=== PATIENT | female | born 2000 | race Caucasian/White ===

== ENCOUNTER 2024-11-15 17:24 | Emergency (ER) | payer BC, SELFPAY ==
[2024-11-15 17:28] VITALS: BP 92/48; PULSE 135; RESP 24; O2SAT 95
[2024-11-15 17:30] VITALS: BP 80/52; PULSE 103; RESP 22; TEMP 37.7; O2SAT 100
--- NOTE | 2024-11-15 18:37 | ED.NAVMDI ---
HPI - Nausea/Vomiting/Diarrhea General Chief complaint: Nausea/Vomiting/Diarrhea Stated complaint: Vomiting Time Seen by Provider: 11/15/24 17:25 Source: patient and family Mode of arrival: ambulatory Limitations: no limitations History of Present Illness HPI Narrative: 23 yo F presents with sister with c/o N/V/D since 2am. Sister states pt has been pale, unsteady on her feet and seems confused for the past 2 to 3 hours. [place] home cooked meal last night and sister thinks has pork allergy . has had N/v from it in the past. Afebrile. Has not been able to keep down fluids all day. Concerned for dehydration. Denies recent alcohol use. Pt c/o ABD pain. Pt pale, movign back in forth in chair, appears to be in pain, eyes rolling back in her head, not answering any questions. All systems reviewed and negative except as noted above. Related Data Home Medications ?Medication ?Instructions ?Recorded ?Confirmed ?Last Taken ?Type No Home Medications 11/15/24 11/15/24 Unknown History Allergies Allergy/AdvReac Type Severity Reaction Status Date / Time penicillin G Allergy Severe Anaphylaxis Verified 11/15/24 18:27 Review of Systems Review of Systems: CONSTITUTIONAL: Denies fever, chills, or sweats. family reports fatigue, pale EYES: Denies visual changes, redness, or discharge. ENT: Denies rhinorrhea, congestion, sore throat, or otalgia. CARDIOVASCULAR: Denies chest pain, palpitations, or edema. RESPIRATORY: Denies cough or dyspnea. GASTROINTESTINAL: reports abdominal pain, nausea, vomiting, or diarrhea. GENITOURINARY: Denies dysuria or hematuria. SKIN: Denies rash or itching. MUSCULOSKELETAL: Denies back pain, joint pain, or myalgia. NEUROLOGIC: Denies headache, numbness, or weakness. PSYCHIATRIC: Denies anxiety or depression. All other systems reviewed are negative, except as documented in HPI. [facility] Comments At time of signature, agree with nursing past medical, surgical, social and family history. There is no relevant family history pertinent to the presenting complaint. Exam Narrative: GENERAL: pale, appears to be in pain distress, lethargic, incoherent HEAD: normocephalic, atraumatic. EYES: PERRL. Sclera clear/white. Vision is grossly intact. EARS: External ears normal NOSE: External nose normal NECK: Neck supple, non-tender without lymphadenopathy, masses or thyromegaly. CARDIOVASCULAR: tachycardic without murmurs, gallops, or rubs. RESPIRATORY: Clear to auscultation. Breath sounds equal bilaterally. No wheezes, rales, or rhonchi. SKIN: warm, Dry, intact with no suspicious lesions or rash, good texture and turgor. NEURO: awake but confused. A&O x 1 to 2 EXTREMITIES: No joint tenderness, effusion, or edema noted. Course Course Level of Care: Express Care Visit Vital Signs Vital signs: Vital Signs Pulse Rate 135 H 11/15/24 17:28 Respiratory Rate 24 H 11/15/24 17:28 Blood Pressure 92/48 L 11/15/24 17:28 Pulse Oximetry 95 11/15/24 17:28 Oxygen Delivery Room Air 11/15/24 17:28 Temperature 37.7 C H 11/15/24 17:30 Pulse Rate 103 H 11/15/24 17:30 Respiratory Rate 22 H 11/15/24 17:30 Blood Pressure 80/52 L 11/15/24 17:30 Pulse Oximetry 100 11/15/24 17:30 Oxygen Delivery Room Air 11/15/24 17:30 Transfer Transfered to: [place] Transportation: BLS Transfer rationale: ABD pain, dehydration, hypotension, confusion Accepting physician: Leonor PATEL MDM - Nausea/Vomiting/Diarrhea MDM Narrative Medical decision making narrative: Patient is aware of diagnosis, understands and agrees to treatment plan. Anticipatory guidance given. Patient agrees to follow-up as directed and is aware of reasons to seek care at the emergency department. Portions of this record may have been created with voice recognition software transferring to ER for further evaluation of ABD pain, hypotension, incoherent Discharge Plan Discharge Clinical Impression: Nausea vomiting and diarrhea, Acute dehydration Patient Disposition: Acute Care Hospital Condition: Stable Patient Language: Anguillan Prescriptions: No Action No Home Medications Follow-up/Referrals: PHYSICIAN,CORRECTIONAL SECURITY OFFICER [Primary Care Provider] - Time of Disposition: 17:53
== END 2024-11-15 17:50 | disposition short-term general hospital (02) ==
PROVIDERS: Emergency Provider Nurse Practitioner Family
DX: R11.2 Nausea with vomiting, unspecified (principal); R19.7 Diarrhea, unspecified; E86.0 Dehydration
CPT/HCPCS: 99213; G0463

== ENCOUNTER 2024-11-15 18:08 | Emergency (ER) | payer BC, SELFPAY ==
[2024-11-15 18:06] VITALS: BP 125/99; PULSE 91; RESP 16; TEMP 36.4; O2SAT 100
--- NOTE | 2024-11-15 18:20 | ED_ITS ---
HPI - Abdominal Pain General Chief Complaint: Nausea/Vomiting/Diarrhea Stated Complaint: n/v/d abd pain Time Seen by Provider: 11/15/24 18:13 History of Present Illness HPI narrative: 23-year-old female with no significant past medical history presenting to the emergency department via EMS for concerns of nausea and, dehydration, diarrhea. Symptoms onset about 2 in the morning. Patient states that she had a medial in containing pork over at her family's house. Patient normally does not eat pork and thinks this could be a reaction to it. No one else at the family household has been sick with similar symptoms. Denies any known allergies to pork or any pork products. Endorses feeling dehydrated having voluminous watery stools for since 2 in the morning. Some vague abdominal cramping as well. No chest pain, shortness a breath, fever, chills, back pain. No urinary complaints. Was otherwise in her normal state of health yesterday. Related Data Allergies Allergy/AdvReac Type Severity Reaction Status Date / Time penicillin G Allergy Severe Anaphylaxis Verified 11/15/24 18:27 Review of Systems 2 Review of Systems: As reviewed above in HPI Exam 2 Narrative: GENERAL: [Well-appearing, well-nourished, and in no acute distress.] HEAD: [Normocephalic, atraumatic.] EYES: [PERRLA and EOMI.] ENT: Nares clear, no rhinorrhea or epistaxis. Mucous membranes dry NECK: Supple. CHEST: [Clear to auscultation. No respiratory distress.] HEART: [Regular rate and rhythm]. No murmur heard. [Normal peripheral pulses.] ABDOMEN: [Soft, nondistended], [nontender], [No rigidity or guarding] EXTREMITIES: Normal range of motion. [No edema.] SKIN: Warm, dry, no rash. NEURO: [No focal deficits]. Alert and oriented [x3.] PSYCH: [Normal mood and affect.] Course Vital Signs Vital signs: Vital Signs Temperature 36.4 C 11/15/24 18:06 Pulse Rate 91 11/15/24 18:06 Respiratory Rate 16 11/15/24 18:06 Blood Pressure 125/99 H 11/15/24 18:06 Pulse Oximetry 100 11/15/24 18:06 Oxygen Delivery Room Air 11/15/24 18:06 Temperature 36.4 C 12/21/24 18:06 Pulse Rate 86 11/15/24 19:31 Respiratory Rate 18 11/15/24 19:31 Blood Pressure 117/58 L 11/15/24 19:31 Pulse Oximetry 100 11/15/24 19:31 Oxygen Delivery Room Air 11/15/24 18:06 MDM - Abdominal Pain MDM Narrative Medical decision making narrative: 23-year-old otherwise healthy female presenting with nausea, abdominal cramping and diarrhea for approximately 16 hours. She states her diarrhea is loose and voluminous without any foul odor or melena/blood. No mucus. No history of IBS or inflammatory bowel disease. Some abdominal cramping which is nonspecific, she does appear slightly dehydrated but has reassuring vital signs without any significant tachycardia, fever, hypoxia, blood pressure concerns. She is otherwise awake and appears well. IV was established as well as blood work being obtained including CBC, CMP, urinalysis, EKG. She was given fluid resuscitation with L of lactated Ringer's, treatment with Toradol, Pepcid, zofran. Differential includes dehydration, gastroenteritis, food poisoning, less likely intra-abdominal process such as diverticulitis, colitis, inflammatory bowel. Laboratory studies reassuring, no leukocytosis anemia or electrolyte deficiencies. Normal renal and hepatic function panel. Negative lipase. Normal glucose. Urinalysis without any signs of infection. Negative test. Patient was re-evaluated and felt significantly improved after hydration and medications. At this time she is stable for discharge home with symptomatic controlling medications and return precautions. Patient verbalized understanding and was safely discharge this time. Medical Records Attestation: I reviewed the patient's medical records. Lab Data Attestation: I reviewed the patient's lab results. 11/15/24 18:24 11/15/24 18:24 Labs: Lab Results 11/15/24 11/15/24 11/15/24 Range/Units 18:24 18:33 18:34 WBC 8.0 (4.5-10.0) K/mm3 RBC 4.47 (4.2-5.4) M/mm3 Hgb 13.4 (12.0-15.0) g/dL Hct 39.1 (37.0-47.0) % MCV 87.5 (80-100) fl MCH 30.0 (26-34) pg MCHC 34.3 (32-36) g/dl RDW 12.7 (11.5-14.5) % Plt Count 170 (150-375) k/mm3 MPV 10.4 (7.4-10.4) fl Immature Gran % (Auto) Not Reportable Neut % (Auto) Not Reportable Lymph % (Auto) Not Reportable Villalba % (Auto) Not Reportable Eos % (Auto) Not Reportable Baso % (Auto) Not Reportable Lymph # (Auto) Not Reportable Villalba # (Auto) Not Reportable Eos # (Auto) Not Reportable Baso # (Auto) Not Reportable Abs Immat Gran (auto) Not Reportable Absolute Neuts (auto) Not Reportable Absolute Nucleated RBC Not Reportable Total Counted 100 Neutrophils % (Manual) 91 H (46-73) % Band Neutrophils % 1 (0-6) % Lymphocytes % (Manual) 5.0 L (18-44) % Monocytes % (Manual) 3 (3-9) % Nucleated RBC % Not Reportable Abs Neuts (Manual) 7.36 H (1.7-7.2) K/mm3 Abs Lymphs (Manual) 0.40 L (1.1-4.5) K/mm3 Abs Monocytes (Manual) 0.24 (0.1-0.90) K/mm3 Platelet Estimate Adequate (Adequate) Schistocytes None seen Sodium 133 L (137-145) mmol/L Potassium 3.5 (3.4-5.0) mmol/L Chloride 102 (98-107) mmol/L Carbon Dioxide 20 L (22-30) mmol/L Anion Gap 11 (4-12) mmol/L BUN 14 (7-17) mg/dL Creatinine 0.60 L (0.7-1.0) mg/dL Estim Creat Clear Calc 103 ml/min Estimated GFR > 60 (59 - ) Glucose 118 H (65-110) mg/dL POC Capillary Glucose (65-105) mg/dl Calcium 9.2 (8.4-10.2) mg/dL Total Bilirubin 1.2 (0.2-1.3) mg/dL AST 25 (14-36) U/L ALT 19 (6-35) U/L Alkaline Phosphatase 66 (38-126) U/L Total Protein 8.0 (6.3-8.2) g/dL Albumin 4.5 (3.5-5.1) g/dL Lipase 51 (23-300) U/L Urine Color Yellow (Yellow) Urine Appearance Clear (Clear) Urine pH 8.0 (5.0-9.0) Ur Specific [place] 1.024 (1.001-1.035) Urine Protein Trace (Negative) mg/dL Urine Glucose (UA) Negative (Negative) mg/dL Urine Ketones Trace H (Negative) mg/dL Ur Blood (Man) Negative (Negative) Urine Nitrate Negative (Negative) Urine Bilirubin Negative (Negative) Urine Urobilinogen 0.2 (<2.0) mg/dL Leukocyte Esterase Rfl Negative (Negative) SUKUMAR/UL Urine RBC 0-2 (0-2) /hpf Urine WBC 0-5 (0-3) /hpf Ur Squamous Epith Cells None seen (Few) /hpf Urine Bacteria None seen /hpf Urine Casts 0-2 POC Urine HCG, Qual Negative (Negative) 11/15/24 Range/Units 18:37 WBC (4.5-10.0) K/mm3 RBC (4.2-5.4) M/mm3 Hgb (12.0-15.0) g/dL Hct (37.0-47.0) % MCV (80-100) fl MCH (26-34) pg MCHC (32-36) g/dl RDW (11.5-14.5) % Plt Count (150-375) k/mm3 MPV (7.4-10.4) fl Immature Gran % (Auto) Neut % (Auto) Lymph % (Auto) Villalba % (Auto) Eos % (Auto) Baso % (Auto) Lymph # (Auto) Villalba # (Auto) Eos # (Auto) Baso # (Auto) Abs Immat Gran (auto) Absolute Neuts (auto) Absolute Nucleated RBC Total Counted Neutrophils % (Manual) (46-73) % Band Neutrophils % (0-6) % Lymphocytes % (Manual) (18-44) % Monocytes % (Manual) (3-9) % Nucleated RBC % Abs Neuts (Manual) (1.7-7.2) K/mm3 Abs Lymphs (Manual) (1.1-4.5) K/mm3 Abs Monocytes (Manual) (0.1-0.90) K/mm3 Platelet Estimate (Adequate) Schistocytes Sodium (137-145) mmol/L Potassium (3.4-5.0) mmol/L Chloride (98-107) mmol/L Carbon Dioxide (22-30) mmol/L Anion Gap (4-12) mmol/L BUN (7-17) mg/dL Creatinine (0.7-1.0) mg/dL Estim Creat Clear Calc ml/min Estimated GFR (59 - ) Glucose (65-110) mg/dL POC Capillary Glucose 98 (65-105) mg/dl Calcium (8.4-10.2) mg/dL Total Bilirubin (0.2-1.3) mg/dL AST (14-36) U/L ALT (6-35) U/L Alkaline Phosphatase (38-126) U/L Total Protein (6.3-8.2) g/dL Albumin (3.5-5.1) g/dL Lipase (23-300) U/L Urine Color (Yellow) Urine Appearance (Clear) Urine pH (5.0-9.0) Ur Specific [place] (1.001-1.035) Urine Protein (Negative) mg/dL Urine Glucose (UA) (Negative) mg/dL Urine Ketones (Negative) mg/dL Ur Blood (Man) (Negative) Urine Nitrate (Negative) Urine Bilirubin (Negative) Urine Urobilinogen (<2.0) mg/dL Leukocyte Esterase Rfl (Negative) SUKUMAR/UL Urine RBC (0-2) /hpf Urine WBC (0-3) /hpf Ur Squamous Epith Cells (Few) /hpf Urine Bacteria /hpf Urine Casts POC Urine HCG, Qual (Negative) Discharge Plan Discharge Clinical Impression: Nausea vomiting and diarrhea, Gastroenteritis, Food poisoning Patient Disposition: Home, Self-Care Condition: Stable Instructions: Antibiotic Form, Gastroenteritis (ED), Acute Diarrhea (ED), Food Poisoning (ED) Additional Instructions: Your workup today was very reassuring, we will be able to send you home with some medications for symptom control. If you have any persistent symptoms, profound dehydration inability to tolerate any oral intake please return to the emergency department otherwise follow up with regular healthcare provider. Patient Language: Trinidadian Prescriptions: New dicyclomine 20 mg tablet 20 mg PO TID PRN (Reason: abdominal pain) Qty: 14 0RF ondansetron 4 mg tablet,disintegrating 4 mg PO Q8H PRN (Reason: nausea and vomiting) Qty: 10 0RF loperamide [Anti-Diarrheal (loperamide)] 2 mg capsule 2 mg PO Q6H PRN (Reason: loose stool) Qty: 14 0RF Follow-up/Referrals: PHYSICIAN,MACHINE RIVETER [Non-Staff] - Time of Disposition: 19:43
[2024-11-15 18:22] VITALS: BP 137/65; PULSE 90; RESP 17; O2SAT 100
--- NOTE | 2024-11-15 18:25 | ECG_ITS ---
Test Date: 2024-11-15 18:11:13 Measurements Intervals [place] Rate: 89 P: 74 LA: 134 QRS: 85 QRSD: 97 T: -13 QT: 331 QTc: 403 Interpretive Statements SINUS RHYTHM POSSIBLE LEFT ATRIAL ENLARGEMENT [-0.1mV P WAVE IN V1/V2] NONSPECIFIC T-WAVE ABNORMALITY No previous ECG available for comparison Electronically Signed On 11-15-2024 21:07:29 FACILITY ENGINEER by Adina Clemons M.D.
[2024-11-15 18:30] LABS: Hematocrit 39.1 % (37.0-47.0); Hemoglobin 13.4 g/dL (12.0-15.0); Mean Corpuscular HGB Conc 34.3 g/dl (32-36); Mean Corpuscular Volume 87.5 fl (80-100); Mean Platelet Volume 10.4 fl (7.4-10.4); Platelet Count Result 170 k/mm3 (150-375); Red Blood Count 4.47 M/mm3 (4.2-5.4); Red Cell Distribution Width 12.7 % (11.5-14.5)
[2024-11-15 18:35] LABS: BEDSIDEPREGUCG Negative (Negative)
[2024-11-15] MEDS: LACTATED RINGERS 1,000 ML 999 ML IV CONT (18:35)
[2024-11-15] MEDS: ONDANSETRON INJ 4 MG/2 ML VIAL IV PUSH (18:36)
[2024-11-15] MEDS: FAMOTIDINE 20 MG/2 ML VIAL IV PUSH (18:37)
[2024-11-15] MEDS: KETOROLAC 30 MG/ML VIAL (*BKC) IV PUSH (18:37)
[2024-11-15 18:40] VITALS: BP 119/62; PULSE 88; RESP 19; O2SAT 100
[2024-11-15 18:40] LABS: Glucose Point of Care 98 mg/dl (65-105)
[2024-11-15 18:41] LABS: Alanine Aminotransferase 19 U/L (6-35); Albumin Level 4.5 g/dL (3.5-5.1); Alkaline Phosphatase 66 U/L (38-126); Anion Gap 11 mmol/L (4-12); Aspartate Amino Transferase 25 U/L (14-36); Bilirubin,Total 1.2 mg/dL (0.2-1.3); Blood Urea Nitrogen 14 mg/dL (7-17); Calcium 9.2 mg/dL (8.4-10.2); Carbon Dioxide 20 mmol/L (22-30); Chloride 102 mmol/L (98-107); Estimated CRCL calculation 103 ml/min; Estimated Glomerular Filt Rate > 60; Glucose 118 mg/dL (65-110); Lipase 51 U/L (23-300); Potassium 3.5 mmol/L (3.4-5.0); Sodium 133 mmol/L (137-145)
[2024-11-15 18:46] LABS: Add Urine Microscopic? YES; Appearance Urine Clear (Clear); Bacteria Urine None Seen /hpf; Bilirubin Urine Negative (Negative); Blood Urine Negative (Negative); Color Urine Yellow (Yellow); Glucose Urine UA Negative (Negative); Ketones Urine Trace mg/dL (Negative); Leukocyte Esterase Ur Negative LEU/UL (Negative); Nitrate Urine Negative (Negative); Non Pathogenic Casts 0-2; Protein Urine Trace mg/dL (Negative); RBC Urine 0-2 /hpf (0-2); Specific Grav Ur 1.024 (1.001-1.035); Squamous Epithelial Cell Urine None Seen /hpf (Few); Urobilinogen Urine 0.2 mg/dL (<2.0); WBC Urine 0-5 /hpf (0-3)
[2024-11-15 19:00] LABS: Band Neutrophils Percent 1 % (0-6); Monocytes Absolute Manual 0.24 K/mm3 (0.1-0.90); Monocytes Percent Manual 3 % (3-9); Neutrophils Absolute Manual 7.36 K/mm3 (1.7-7.2); Neutrophils Percent Manual 91 % (46-73); Platelet Estimate Adequate (Adequate); Schistocytes None Seen; Total Cells Counted 100
[2024-11-15 19:01] VITALS: BP 124/64; PULSE 91; RESP 16; O2SAT 100
[2024-11-15 19:31] VITALS: BP 117/58; PULSE 86; RESP 18; O2SAT 100
--- OUTSIDE RECORDS SUMMARY | 2024-11-23 00:07 | XMS_ITS | Encounter Summary ---
Author Organization [facility] Address [address] [place] [id number] Care Team Providers Care Zoology Professor Name Role Phone Meghan Cagle MD Primary Care Provider Reason for Visit * Reason Comments Follow-up * Benefit Info Only (Routine) - Closed Specialty Diagnoses / Procedures Referred By Mary uriarte Referred To Contact Pediatric Endocrinology Procedures FOLLOW UP Sherry Bautista MD [address] [place] [phone] Referral ID Status Reason Start Date Expiration Date Visits Re quested Visits Authorized [id number] Closed 06/11/2018 07/11/2018 1 1 Encounter Details Date Type Department Care Team (Latest Contact Info) Description 06/11/2018 4:45 PM EDT Office Visit [facility] at the [facility] [address] [place] [id number] Sherry Bautista MD [address] [place] [phone] Sebastian's thyroiditis (Primary Dx) Social History Tobacco Use Types Packs/Day Years Used Date Smoking Tobacco: Never Smokeless Tobacco: Never Alcohol Use Standard Drinks/Week Comments No 0 (1 standard drink = 0.6 oz pur e alcohol) Sex and Gender Information Value Date Recorded Sex Assigned at Not on file Gender Identity Not on file Sexual Orientation Not on file documented as of this encounter Last Filed Vital Signs Vital Sign Reading Time Taken Comments Blood Pressure 118/70 06/11/2018 5:07 PM EDT Pulse 61 06/11/2018 5:07 PM EDT Temperature 36.8 ??C (98.3 ??F) 06/11/2018 5:07 PM ED T Respiratory Rate - - Oxygen Saturation - - Inhaled Oxygen Concentration - - Weight 55.9 kg (123 lb 3.8 oz) 06/11/2018 5:07 P M EDT Height 158.6 cm (5' 2.44 ) 06/11/2018 5:07 PM ED T Body Mass Index 22.22 06/11/2018 5:07 PM EDT Body Mass Index Percentile 67.20% 06/11/2018 5:0 7 PM EDT Growth Chart: [facility] (Girls, 2- 20 Years) documented in this encounter Patient Instructions * Patient Instructions* Sherry Bautista MD - 06/11/2018 4:45 PM EDT 1. Please obtain blood test in July. documented in this encounter Progress Notes * Sherry Bautista MD - 06/11/2018 4:45 PM EDT HPI Neville Voss is a 17 y.o. 6 m.o. female I am seeing Neville Voss today in the endocrine clinic as a follow up for Sebastian's thyroiditis. Patient was referred by Meghan Cagle MD. I last saw her 4 months ago. Patient is here with her mother. Neville had irregular periods and was evaluated by , a technology resource teacher. She had an implant of Etonogestrel in April 2017. As part of an investigation for irregular periods, blood tests were obtained in September 2017. The results showed the presence of thyroid peroxidase antibody. However, T4 and TSH were both normal. The tests were repeated again on Dec. The results showed normal FreeT4 (1.0) and TSH (1.6). TPOwas markedly elevated (126). She was instructed to take multivitamin and iodine pill to improve thyroid function. The iodine pill contains 3000 mcg of iodine. Multivitamin also contains 75 mcg of iodine. She denies any symptoms of hypothyroidism such as low energy level or constipation. At the lastvisit, I have asked her to stop the iodine supplement and asked for urine iodine test. The patient submitted the sample to the laboratory yesterday. Past Medical History History ??? Length: 17 (43.2 cm) Weight: 9 lb 2 oz (4.139 kg) ??? Delivery Method: , Classical ??? Gestation Age: 38 wks ??? Feeding: Breast and Bottle Fed \History reviewed. No pertinent surgical history. Family History Paternal grandmother and great grandfather both have thyroid condition. Grandmother is taking daily synthroid. Social History Social History Narrative Neville is living with both parents and sibling. She finished 10th grade and did well in school last year. No Known Allergies Review of Systems Constitutional: Normal weight gain. HENT: No discharge. Eyes: No visual problems. Respiratory: No cough. Cardiovascular: No chest pain. Gastrointestinal: No diarrhea. Endocrine: Periods have become more regular. Genitourinary: Normal voiding. Musculoskeletal: No fractures. Skin: No rash. Allergic/Immunologic: No frequent infections. Neurological: No seizure. Hematological: No bleeding diathesis. Vitals: 06/11/18 1707 BP: 118/70 Pulse: 61 Temp: 98.3 ??F (36.8 ??C) Weight: 123 lb 3.8 oz (55.9 kg) Height: 5' 2.44 (1.586 m) Body mass index is 22.22 kg/(m^2). Body surface area is 1.57 meters squared.\ Wt Readings from Last 3 Encounters: 06/11/18 123 lb 3.8 oz (55.9 kg) (56 %, Z= 0.14)* 02/08/18 118 lb 2.7 oz (53.6 kg) (47 %, Z= -0.07)* * Growth percentiles are based on CDC 2-20 Years data. Ht Readings from Last 3 Encounters: 06/11/18 5' 2.44 (1.586 m) (26 %, Z= -0.65)* 02/08/18 5' 1.81 (1.57 m) (19 %, Z= -0.87)* * Growth percentiles are based on CDC 2-20 Years data. Body mass index is 22.22 kg/(m^2). 67 %ile (Z= 0.45) based on CDC 2-20 Years BMI-for-age data using vitals from 06/11/2018. 56 %ile (Z= 0.14) based on CDC 2-20 Years [id number] data using vitals from 06/11/2018. 26 %ile (Z= -0.65) based on CDC 2-20 Years [id number] data using vitals from 06/11/2018. Objective: Physical Exam Constitutional: She is oriented to person, place, and time. She appears well- developed. No distress. HENT: Head: Normocephalic. Mouth/Throat: Oropharynx is clear and moist. No oropharyngeal exudate. Eyes: Pupils are equal, round, and reactive to light. Right eye exhibits no discharge. Left eye exhibits no discharge. Neck: Normal range of motion. No thyromegaly present. Cardiovascular: Normal rate and regular rhythm. Exam reveals no gallop and no friction rub. No murmur heard. Pulmonary/Chest: Effort normal. She has no wheezes. She has no rales. Abdominal: Soft. She exhibits no mass. There is no tenderness. Genitourinary: Genitourinary Comments: Skip 5 Musculoskeletal: Normal range of motion. She exhibits no edema or deformity. Neurological: She is alert and oriented to person, place, and time. She displays normal reflexes. She exhibits normal muscle tone. Skin: Skin is warm. No rash noted. She is not diaphoretic. Assessment: Sebastian's thyroiditis: I discussed with the mother that her thyroid function is still normal and she does not require thyroid replacement at this time. However, we will need to monitor her thyroid function due to the risk of hypothyroidism. She has stopped taking iodine supplement as the amount was excessive and can inhibit thyroid hormone production. I will follow up on the urine iodine test results. Plan: 1. FreeT4, TSH in 2 months. 2. I will contact the mother with results. 3. No treatment is indicated at this time. 4. She will return in 4 months. Component Latest Ref Rng & Units 06/06/2018 Iodine, Urine 28.0 - 544.0 ug/L 123.9 Discussed with the father. Urine Iodine was normal. She can continue with multivitamin supplement. documented in this encounter Plan of Treatment Not on file documented as of this encounter Procedures Procedure Name Priority Date/Time Associated Diagnosis Comments TSH Routine 11/22/2018 12:11 PM EST Sebastian's thyroiditis T4, FREE Routine 11/22/2018 12:11 PM EST Sebastian's thyroiditis documented in this encounter Results * TSH (11/22/2018 12:11 PM EST) Thyroid Stimulating Hormone 0.847 0.450 - 4.500 uIU/mL [facility] Comment: Performed At: [address] [facility] [address] [place], [place] ??[id number] Henny Torres MD [id number] Blood specimen (specimen) 11/22/2018 12:11 PM EST 11/22/2018 Sherry Bautista MD LAB BLOOD ORDERABLE S Performing Organization Address [facility] Co de Phone Number [facility]TER[facility] (LAB) [facility] [place] [address] [place] [address] * T4, free (11/22/2018 12:11 PM EST) T4, Free 1.11 0.93 - 1.60 ng/dL [facility] Blood specimen (specimen) 11/22/2018 12:11 PM EST 11/22/2018 Sherry Bautista MD LAB BLOOD ORDERABLE S Performing Organization Address City/[facility]/ZIP Co de Phone Number [facility]TERNAL[facility] (LAB) [facility] [place] [address] [place] [address] documented in this encounter Visit Diagnoses Diagnosis Sebastian's thyroiditis- Primary Chronic lymphocytic thyroiditis documented in this encounter Care Teams Zoology Professor Relationship Specialty Start Date End Date Meghan Cagle MD [address] [facility] [place] [address] PCP - General Pediatrics 01/18/18 documented as of this encounter
--- OUTSIDE RECORDS SUMMARY | 2024-11-23 00:07 | XMS_ITS | Encounter Summary ---
Author Organization [facility] Address [address] [place] [address] Care Team Providers Care Planogrammer Name Role Phone Meghan Cagle MD Primary Care Provider [phone] Encounter Details Date Type Department Care Team (Late st Contact Info) Description 05/27/2023 11:10 AM EDT Office Visit [facility] at [address] [address] Amanda Norman, [facility] [address] [address] Pharyngitis, unspecified etiology (Primary Dx) Social History Tobacco Use Types Packs/Day Years Used Date Smoking Tobacco: Never Smokeless Tobacco: Never Alcohol Use Standard Drinks/Week Comments Not Currently 0 (1 standard drink = 0.6 oz pur e alcohol) Sex and Gender Information Value Date Recorded Sex Assigned at Not on file Gender Identity Not on file Sexual Orientation Not on file documented as of this encounter Last Filed Vital Signs Vital Sign Reading Time Taken Comments Blood Pressure 105/68 05/27/2023 11:27 AM EDT Pulse 82 05/27/2023 11:27 AM EDT Temperature 36.8 ??C (98.3 ??F) 05/27/2023 11:27 AM E DT Respiratory Rate 18 05/27/2023 11:27 AM EDT Oxygen Saturation 99% 05/27/2023 11:27 AM EDT Inhaled Oxygen Concentration - - Weight 56.7 kg (125 lb) 05/27/2023 11:27 AM EDT Height 160 cm (5' 3 ) 05/27/2023 11:27 AM EDT Body Mass Index 22.14 05/27/2023 11:27 AM EDT documented in this encounter Patient Instructions * Patient Instructions* Amanda Norman, BISI - 05/27/2023 11:10 AM EDT Images from the original note were not included. Viral Pharyngitis (Sore Throat) You (or your child, if your child is the patient) have pharyngitis (sore throat). This infection iscaused by a virus. It??can cause throat pain that is worse when swallowing, aching all over, headache,??and fever. The infection may be spread by coughing, kissing,??or touching others after touchingyour mouth or nose. Antibiotic medications do not work against viruses, so they are not used for treating this condition. Home care ?? If your symptoms are severe, rest at home. Return to work or school when you feel well enough.? Drink plenty of fluids to avoid dehydration. ?? For children:??Use acetaminophen for fever, fussiness or discomfort. In infants over six months of age, you may use ibuprofen instead of acetaminophen. (NOTE: If your child has chronic liver or kidney disease or ever had a stomach ulcer or GI bleeding, talk with your doctor before using these medicines.) (NOTE: Aspirin should never be used in anyone under 18 years of age who is ill with a fever. It may cause severe liver damage.)? For adults:??You may use acetaminophen or ibuprofen to control pain or fever, unless another medicine was prescribed for this. (NOTE: If you have chronic liver or kidney disease or ever had a stomach ulcer or GI bleeding, talk with your doctor before using these medicines.) ?? Throat lozenges or numbing throat sprays can help reduce pain. Gargling with warm salt water will also help reduce throat pain. For this, dissolve 1/2 teaspoon of salt in 1 glass of warm water. Tohelp soothe a sore throat, children can sip on juice or a popsicle. Children 5 years and??older canalso suck on a lollipop or hard candy. ?? Avoid salty or spicy foods, which can be irritating to the throat. Follow-up care Follow up with your healthcare provider or our staff if you are not improving over the next week. When to seek medical advice Call your healthcare provider right away if any of these occur: ?? Fever??as directed by your doctor. ??For children, seek care if: ?? Your child is of any age and has repeated fevers above 104??F (40??C). ?? Your child is younger than 2 years of age and has a fever of 100.4??F (38??C) that continues formore than 1 day. ?? Your child is 2 years old or older and has a fever of 100.4??F (38??C) that continues for more than 3 days. ?? New or worsening ear pain, sinus pain, or headache ?? Painful lumps in the back of neck ?? Stiff neck ?? Lymph nodes are getting larger ?? Inability to swallow liquids, excessive drooling,??or inability to open mouth wide due to throatpain ?? Signs of dehydration (very dark urine or no urine, sunken eyes, dizziness) ?? Trouble breathing or noisy breathing ?? Muffled voice ?? New rash ?? Child appears to be getting sicker ?? [id number] [employer]. [address] [place] [address], [place] [address]. All rights reserved. This information is not intended as a substitute for professional medical care. Always follow your healthcare professional's instructions. Self-Care for Sore Throats Sore throats occur for many reasons, such as colds, allergies, and infections caused by viruses or bacteria. In any case, your throat becomes red and sore. Your goal for self-care is to reduce your discomfort while giving your throat a chance to heal. Moisten and Soothe Your Throat ?? Try a sip of water first thing after waking up. ?? Keep your throat moist by drinking??6 or more glasses of clear liquids every day. ?? Run a cool-air humidifier in your room overnight. ?? Avoid cigarette smoke.? Suck on throat lozenges, cough drops, hard candy, ice chips, or frozen fruit- juice bars. Use thesugar-free versions if your diet or medical condition require them. Gargle to Ease Irritation Gargling every hour or??2 can ease irritation. Try gargling with??1 of these solutions: ?? 1/4??teaspoon of salt in??1/2 cup of warm water ?? An eivf-put-sfsgysq anesthetic gargle Use Medication for More Relief Rruz-hab-phxxxeo medication can reduce sore throat symptoms. Ask your pharmacist if you have questions about which medication to use: ?? Ease pain with anesthetic sprays. Aspirin or an aspirin substitute also helps. Remember, never give aspirin to anyone 18 or younger, or if you are already??taking blood thinners.? For sore throats caused by allergies, try antihistamines to block the allergic reaction. ?? Remember: unless a sore throat is caused by a bacterial infection, antibiotics won???t help you. Prevent Future Sore Throats ?? Stop smoking or reduce contact with secondhand smoke. Smoke irritates the tender throat lining. ?? Limit contact with pets and with allergy-causing substances, such as pollen and mold. ?? When you???re around someone with a sore throat or cold, wash your hands frequently to keep viruses or bacteria from spreading. ?? Don???t strain your vocal cords. Call Your Health Care Provider Contact your doctor if you have: ?? A temperature over 101??F (38.3??C) ?? White spots on the throat ?? Great difficulty swallowing ?? Trouble breathing ?? A skin rash ?? Recent exposure to someone else with strep bacteria ?? Severe hoarseness and swollen glands in the neck or jaw ?? [id number] [employer]. [address] [place] [address], [place] [address]. All rights reserved. This information is not intended as a substitute for professional medical care. Always follow your healthcare professional's instructions. * Attachments The following attachments cannot be sent through Care Everywhere. * PHARYNGITIS, REPORT PENDING ([facility]) * SORE THROATS, SELF-CARE FOR ([facility]) * PHARYNGITIS, VIRAL ([facility]) documented in this encounter Progress Notes * Amanda Norman, BISI - 05/27/2023 11:10 AM EDT Subjective : Patient ID: Neville Voss is a 22 y.o. female. HPIPt in with c/o (R) sided tonsillar / throat discomfort 6/10 for past 2 to 3 days. Denies fever, body aches, cough or other upper respiratory discomforts. Has been drinking tea with honey with little effect. History reviewed. No pertinent past medical history. Patient Active Problem List Diagnosis Date Noted ??? 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 Irregular periods 02/08/2018 History reviewed. No pertinent surgical history. History reviewed. No pertinent family history. Social History Socioeconomic History ??? Marital status: Single Spouse name: Not on file ??? Number of children: Not on file ??? Years of education: Not on file ??? Highest education level: Not on file Occupational History ??? Not on file Tobacco Use ??? Smoking status: Never ??? Smokeless tobacco: Never Vaping Use ??? Vaping status: Never Used Substance and Sexual Activity ??? Alcohol use: Not Currently ??? Drug use: Not Currently Types: Marijuana ??? Sexual activity: Not on file Other Topics Concern ??? Not on file Social History Narrative Neville is living with both parents and sibling. She is in 11th grade. She is doing well. Graduated HS will begin Freshman year of College for June 2020 Social Determinants of Health Financial Resource Strain: Not on file Food Insecurity: Not on file Transportation Needs: Not on file Physical Activity: Not on file Stress: Not on file Social Connections: Not on file Intimate Partner Violence: Not on file Housing Stability: Not on file female Outpatient Medications Marked as Taking for the 05/27/23 encounter (Office Visit) with Kiera CAMACHO Medication Sig Dispense Refill ??? Etonogestrel (Nexplanon) IMPL implant Inject 68 mg into the skin once. Current Outpatient Medications on File Prior to Visit Medication Sig Dispense Refill ??? Etonogestrel (Nexplanon) IMPL implant Inject 68 mg into the skin once. ??? cetirizine (ZYRTEC) 10 MG tablet Take 10 mg by mouth daily. No current facility-administered medications on file prior to visit. Allergies Allergen Reactions ??? Penicillins Review of Systems Constitutional: Negative for fever. HENT: Positive for sore throat. Respiratory: Negative for cough. All other systems reviewed and are negative. Vitals: 05/27/23 1127 BP: 105/68 Pulse: 82 Resp: 18 Temp: 98.3 ??F (36.8 ??C) TempSrc: Oral SpO2: 99% Weight: 125 lb (56.7 kg) Height: 5' 3 (1.6 m) Body mass index is 22.14 kg/m??. Body surface area is 1.59 meters squared. Objective : Physical Exam Vitals reviewed. Constitutional: Appearance: Normal appearance. She is normal weight. HENT: Head: Normocephalic and atraumatic. Right Ear: Tympanic membrane, ear canal and external ear normal. Left Ear: Tympanic membrane, ear canal and external ear normal. Nose: Nose normal. Mouth/Throat: Mouth: Mucous membranes are moist. Comments: Very faint erythema of oropharynx. Tonsils not enlarged . No visible exudayte Eyes: Extraocular Movements: Extraocular movements intact. Conjunctiva/sclera: Conjunctivae normal. Pupils: Pupils are equal, round, and reactive to light. Cardiovascular: Rate and Rhythm: Normal rate and regular rhythm. Pulses: Normal pulses. Pulmonary: Effort: Pulmonary effort is normal. Musculoskeletal: Cervical back: Normal range of motion and neck supple. No rigidity or tenderness. Lymphadenopathy: Cervical: No cervical adenopathy. Skin: General: Skin is warm and dry. Capillary Refill: Capillary refill takes less than 2 seconds. Neurological: General: No focal deficit present. Mental Status: She is alert and oriented to person, place, and time. Psychiatric: Mood and Affect: Mood normal. Behavior: Behavior normal. Thought Content: Thought content normal. Assessment : 1. Pharyngitis, unspecified etiology POCT rapid strep A CULTURE, THROAT lidocaine Viscous HCl (XYLOCAINE) 2 % solution CULTURE, THROAT POCT strep A : negative. Plan : Will follow up results of throat culture and notify Patient. Medication regimen as prescribed Advised may also gargle with warm salt water. .Advised no milk products (will produce more mucous in mouth) F/U with clinic if symptoms not resolving or seek Urgent or ER care if worsens documented in this encounter Plan of Treatment Not on file documented as of this encounter Procedures Procedure Name Priority Date/Time Associated Diagnosis Comments POCT RAPID STREP A Routine 05/27/2023 11 :52 AM EDT Pharyngitis, unspecified etiology UPPER RESPIRATORY CULTURE, ROUTINE (THROAT) Routine 05/27/2023 11:45 AM EDT Pharyngitis, unspecified etiology documented in this encounter Results * POCT rapid strep A (05/27/2023 11:52 AM EDT) Rapid Strep A Screen negative Negative Throat 05/27/2023 11:5 2 AM EDT Amanda Norman DNP POINT OF CARE TEST O RDERABLES * CULTURE, THROAT (05/27/2023 11:45 AM EDT) CULTURE SEE NOTE EXTERNAL-Q UES T (LAB) Comment: ??CULTURE, THROAT ?Micro Number: ?[id number] ??Test Status: ? Final ??Specimen Source: ?? Not given ??Specimen Quality: ??Adequate ??Result: ?No oropharyngeal pathogens recovered. Throat STRUCTURE OF ANTERIOR PORTION OF NECK / Unknown 05/27/2023 11:45 AM EDT 05/28/2023 12:46 AM EDT Narrative Resulting Agency Comment Performing Organization Information: ? [place] ? [facility] ? [address] [place] [address] ? DR. Beatriz Figueroa Amanda Norman DNP MICROBIOLOGY - GENER AL ORDERABLES EXTERNAL-[facility] (LAB) documented in this encounter Visit Diagnoses Diagnosis Pharyngitis, unspecified etiology- Primary documented in this encounter Care Teams Planogrammer Relationship Specialty Start Date End Date Meghan Cagle MD [address] [facility] [place] [address] PCP - General Pediatrics 01/18/18 documented as of this encounter
--- OUTSIDE RECORDS SUMMARY | 2024-11-23 00:07 | XMS_ITS | Clinical Summary ---
Author Organization [facility] Address [address] [place] [address] Care Team Providers Care Math Instructor Name Role Phone Meghan Cagle MD Primary Care Provider [phone] Allergies Active Allergy Reactions Criticality Noted Date Comments Penicillins 11/29/2018 Medications Medication Sig Dispensed Refills Start Date End Date Status cetirizine (ZYRTEC) 10 MG tablet Take 10 mg by mouth daily. Active Etonogestrel (Nexplanon) IMPL implant Inject 68 mg into the skin once. 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 Irregular periods 02/08/2018 Family History Relation Name Status Comments Brother growth problems not specifics Daughter 1 Alive healthy Daughter 2 Alive healthy Father 49 Alive healthy Maternal Grandfather Alive healthy Maternal Grandmother Alive healthy Mother 47 Alive healthy Paternal Grandfather Alive healthy Paternal Grandmother Alive healthy Social History Tobacco Use Types Packs/Day Years Used Date Smoking Tobacco: Never Smokeless Tobacco: Never Alcohol Use Standard Drinks/Week Comments Not Currently 0 (1 standard drink = 0.6 oz pur e alcohol) Sex and Gender Information Value Date Recorded Sex Assigned at Not on file Gender Identity Not on file Sexual Orientation Not on file Last Filed Vital Signs Vital Sign Reading [...] Mass Index 22.14 05/27/2023 11:27 AM EDT Plan of Treatment Health Maintenance Due Date Last Done Comments Cervical Cancer Screening: Cytology Q3 Years 2022 Covid-19 Vaccine ( season) 2024 03/22/2022, 04/19/2021, 03/29/2021 Influenza Vaccine (#1) 2024 , 12/16/2020, 10/16/2019, Additional history exists Hepatitis B Vaccines Completed 08/19/2002, 06/24/2002, 01/23/2002 Pneumococcal Vaccine Aged Out 05/14/2003, 08/19/2002, 03/25/2002 No longer eligible based on patient's age to complete this topic HPV Vaccines Completed 01/25/2016, 04/2015, 06/11/2015 Care Teams Math Instructor Relationship Specialty Start Date End Date Meghan Cagle MD [address] [facility] [place] [address] PCP - General Pediatrics 01/18/18
--- OUTSIDE RECORDS SUMMARY | 2024-11-23 00:07 | XMS_ITS | Encounter Summary ---
Author Organization [facility] Address [address] [place] [address] Care Team Providers Care Laboratory Phlebotomist Name Role Phone Meghan Cagle MD Primary Care Provider [phone] Reason for Visit * Benefit Info Only (Routine) - Closed Specialty Diagnoses / Procedures Referred By Mary uriarte Referred To Contact Pediatrics / Pediatric Endocrinology Procedures FOLLOW UP Sherry Bautista MD [address] [place] [phone] Referral ID Status Reason Start Date Expiration Date Visits Re quested Visits Authorized [id number] Closed 11/29/2018 12/29/2018 1 1 Encounter Details Date Type Department Care Team (Latest Contact Info) Description 11/29/2018 9:15 AM EST Office Visit [facility] [address] [place] [address] Sherry Bautista MD [address] [place] [address] Sebastian's thyroiditis (Primary Dx); Irregular periods Social History Tobacco Use Types Packs/Day Years [...] Sign Reading Time Taken Comments Blood Pressure 115/58 11/29/2018 9:24 AM EST Pulse 61 11/29/2018 9:24 AM EST Temperature 36.8 ??C (98.3 ??F) 11/29/2018 9:24 AM ES T Respiratory Rate - - Oxygen Saturation - - Inhaled Oxygen Concentration - - Weight 54.4 kg (119 lb 14.9 oz) 11/29/2018 9:24 AM EST Height 159.4 cm (5' 2.76 ) 11/29/2018 9:24 AM ES T Body Mass Index 21.41 11/29/2018 9:24 AM EST Body Mass Index Percentile 56.39% 11/29/2018 9:2 4 AM EST Growth Chart: [facility] (Girls, 2- 20 Years) documented in this encounter Progress Notes * Sherry Bautista MD - 11/29/2018 9:15 AM EST HPI Neville Voss is a 18 y.o. 0 m.o. female I am seeing Neville Voss today in the endocrine clinic as a follow up for Sebastian's thyroiditis. Patient was referred by Meghan Cagle MD. I last saw her 4 months ago. Patient is here with her mother. Neville had irregular periods and was evaluated by , a cellophane wrapping examiner. She had an implant of Etonogestrel in [...] Multivitamin also contains 75 mcg of iodine. I advised her to stop taking iodine supplement and the repeat Urine iodine was normal. She recently had a repeat thyroid function test which showed normal results (FreeT4 1.11, TSH 0.847). Past Medical History History ??? Length: 17 [...] living with both parents and sibling. She did well in school last year. Allergies Allergen Reactions ??? Penicillins Review of Systems Constitutional: Normal weight gain. HENT: No discharge. Eyes: No visual problems. Respiratory: No cough. Cardiovascular: No chest pain. Gastrointestinal: No diarrhea. Endocrine: She still has menstruation every 2 weeks. Genitourinary: Normal voiding. Musculoskeletal: No fractures. Skin: No rash. Allergic/Immunologic: No frequent infections. Neurological: No seizure. Hematological: No bleeding diathesis. Vitals: 11/29/18 0924 BP: 115/58 Pulse: 61 Temp: 98.3 ??F (36.8 ??C) TempSrc: Oral Weight: 119 lb 14.9 oz (54.4 kg) Height: 5' 2.76 (1.594 m) Body mass index is 21.41 kg/m??. Body surface area is 1.55 meters squared.\ Wt Readings from Last 3 Encounters: 11/29/18 119 lb 14.9 oz (54.4 kg) (47 %, Z= -0.09)* 06/11/18 123 lb 3.8 oz (55.9 kg) (56 %, Z= 0.14)* 02/08/18 118 lb 2.7 oz (53.6 kg) (47 %, Z= -0.07)* * Growth percentiles are based on CDC (Girls, 2-20 Years) data. Ht Readings from Last 3 Encounters: 11/29/18 5' 2.76 (1.594 m) (29 %, Z= -0.54)* 06/11/18 5' 2.44 (1.586 m) (26 %, Z= -0.64)* 02/08/18 5' 1.81 (1.57 m) (19 %, Z= -0.87)* * Growth percentiles are based on CDC (Girls, 2-20 Years) data. Body mass index is 21.41 kg/m??. 56 %ile (Z= 0.16) based on CDC (Girls, 2-20 Years) BMI-for-age based on BMI available as of 11/29/2018. 47 %ile (Z= -0.09) based on [facility] (Girls, 2-20 Years) ufomgh-tji-hem data using vitals from 11/29/2018. 29 %ile (Z= -0.54) based on [facility] (Girls, 2-20 Years) [id number]-vfn-[id number] data based on Stature recorded on 11/29/2018. Objective: Physical Exam Constitutional: She is oriented [...] No rash noted. She is not diaphoretic. Lab Results Component Latest Ref Rng & Units 11/22/2018 Iodine, Urine 28.0 - 544.0 ug/L T4, Free 0.93 - 1.60 ng/dL 1.11 Thyroid Stimulating Hormone 0.450 - 4.500 uIU/mL 0.847 Component Latest Ref Rng & Units 06/06/2018 Iodine, Urine 28.0 - 544.0 ug/L 123.9 Discussed with the father. Urine Iodine was normal. She can continue with multivitamin supplement. Assessment: I discussed with the mother that her thyroid function is still normal and she does not require thyroid replacement at this time. However, we will need to monitor her thyroid function due to the risk of hypothyroidism. Plan: 1. FreeT4, TSH in 6 months. 2. No treatment is indicated at this time. 3. She will return in 6 months. documented in this encounter Plan of Treatment Not on file documented as of this encounter Visit Diagnoses Diagnosis Sebastian's thyroiditis- Primary Chronic lymphocytic thyroiditis Irregular periods Irregular menstrual cycle documented in this encounter Care Teams Laboratory Phlebotomist Relationship Specialty Start Date End Date Meghan Cagle MD [address] [facility] [place] [address] PCP - General Pediatrics 01/18/18 documented as of this encounter
--- OUTSIDE RECORDS SUMMARY | 2024-11-23 00:07 | XMS_ITS | Encounter Summary ---
Author Organization [facility] Address [address] [place] [address] Care Team Providers Care Electronics Installer Name Role Phone Meghan Cagle MD Primary Care Provider Reason for Visit * Reason Comments Abnormal Lab Results * Benefit Info Only (Routine) - Closed Specialty Diagnoses / Procedures Referred By Contac t Referred To Contact Pediatric Endocrinology Diagnoses nvp// adv time loc will faxedmed//notes dx autoimune thyroiditis. Procedures NEW PATIENT Sherry Bautista MD [address] [place] [phone] Referral ID Status Reason Start Date Expiration Date Visits Re quested Visits Authorized [id number] Closed 02/08/2018 03/10/2018 1 1 Encounter Details Date Type Department Care Team (Latest Contact Info) Description 02/08/2018 3:15 PM EDT Office Visit [facility] Pediatric Endocrinology at the [facility] [address] [place] [address] Sherry Bautista MD [address] [phone] Sebastian's thyroiditis (Primary Dx); Irregular periods Social [...] Sign Reading Time Taken Comments Blood Pressure 117/70 02/08/2018 3:53 PM EDT Pulse 72 02/08/2018 3:53 PM EDT Temperature 36.6 ??C (97.8 ??F) 02/08/2018 3:53 PM ED T Respiratory Rate - - Oxygen Saturation - - Inhaled Oxygen Concentration - - Weight 53.6 kg (118 lb 2.7 oz) 02/08/2018 3:53 P M EDT Height 157 cm (5' 1.81 ) 02/08/2018 3:53 PM EDT Body Mass Index 21.75 02/08/2018 3:53 PM EDT Body Mass Index Percentile 64.20% 02/08/2018 3:5 3 PM EDT Growth Chart: CDC (Girls, 2- 20 Years) documented in this encounter Progress Notes * Sherry Bautista MD - 02/08/2018 3:15 PM EDT HPI Neville Voss is a 17 y.o. 2 m.o. female I am seeing Neville Voss today in the endocrine clinic as a consultation for Sebastian's thyroiditis and irregular periods. Patient was referred by Meghan Cagle MD. Patient is here with her father. Neville had irregular periods and was evaluated by , a varsity baseball coach. She had an implant of Etonogestrel in April 2017. Her periods were regular but has been irregular in the past 3 months. She has menstruation constantly. As part of an investigation for irregular [...] such as low energy level or constipation. With respect to irregular periods, blood tests in September 2017 also showed normal androgen level as well as FSH, LH and prolactin. Past Medical History History ??? Length: 18 [...] both parents and sibling. She is in 10 th grade. She is doing well Outpatient Prescriptions Marked as Taking for the 02/08/18 encounter (Office Visit) with Sherry Bautista MD Medication Sig Dispense Refill ??? Etonogestrel (NEXPLANNON) IMPL implant Inject 68 mg into the skin once. ??? multiple b vitamin (B COMPLEX) per tablet Take 1 tablet by mouth daily. ??? IODINE-VITAMIN A PO Take 3 mg by mouth daily. No Known Allergies Review of Systems Constitutional: Normal weight gain. HENT: No discharge. Eyes: No visual problems. Respiratory: No cough. Cardiovascular: No cyanosis. Gastrointestinal: No diarrhea. Endocrine: Irregular and heavy periods. Genitourinary: Normal voiding. Musculoskeletal: No fractures. Skin: No rash. Allergic/Immunologic: No frequent infections. Neurological: No seizure. Hematological: No bleeding diathesis. Vitals: 02/08/18 1553 BP: 117/70 Pulse: 72 Temp: 97.8 ??F (36.6 ??C) TempSrc: Oral Weight: 118 lb 2.7 oz (53.6 kg) Height: 5' 1.81 (1.57 m) Body mass index is 21.75 kg/(m^2). Body surface area is 1.53 meters squared.\ Wt Readings from Last 3 Encounters: 02/08/18 118 lb 2.7 oz (53.6 kg) (47 %, Z= -0.07)* * Growth percentiles are based on CDC 2-20 Years data. Ht Readings from Last 3 Encounters: 02/08/18 5' 1.81 (1.57 m) (19 %, Z= -0.87)* * Growth percentiles are based on CDC 2-20 Years data. Body mass index is 21.75 kg/(m^2). 64 %ile (Z= 0.36) based on CDC 2-20 Years BMI-for-age data using vitals from 02/08/2018. 47 %ile (Z= -0.07) based on CDC 2-20 Years [id number]-ovi-wyt data using vitals from 02/08/2018. 19 %ile (Z= -0.87) based on CDC 2-20 Years mewezvd-jhg-imm data using vitals from 02/08/2018. Objective: Physical Exam Constitutional: She is oriented [...] rash noted. She is not diaphoretic. Assessment: 1. Sebastian's thyroiditis: I discussed with the father that her thyroid function is still normal and she does not require thyroid replacement at this time. However, she is taking a high dose of iodine per day. This may cause an inhibition of thyroid hormone production (Dixon-Chaikoff effect). I will obtain urine iodine content and also recommend to discontinue iodine pill. She can continue multivitamin pill which contains about 75 mcg of iodine (50% Daily requirement) and is sufficient as a supplement. TFT will be repeated in 3 months to determine thyroid function. 2. Irregular period: She has heavy periods in the past 3 months. However, she is still wearing an implant which has progesterone component. In my opinion, the implant should be removed or changed before using OCP. The parents should contact her varsity baseball coach about this. Plan: 1. Urine Iodine. 2. Recommend to discontinue iodine pill. 3. The parents should contact the varsity baseball coach regarding the concern of heavy bleeding. 4. She will return in 3 months when TFT will be repeated. documented in this encounter Plan of Treatment Not on file documented as of this encounter Procedures Procedure Name Priority Date/Time Associated Diagnosis Comments IODINE, URINE Routine 06/06/2018 12:19 PM EDT Sebastian's thyroiditis documented in this encounter Results * IODINE, URINE (06/06/2018 12:19 PM EDT) Pathologist [facility] Iodine, Urine 123.9 28.0 - 544.0 ug/L [facility] Comment: ?Limit of quantitation = 20 Performed At: [address] ??[id number] Katie Chow MD [id number] 06/06/2018 12:1 9 PM EDT 06/06/2018 Sherry Bautista MD URINE ORDERABLES Performing Organization Address City/State/[facility] Co de Phone Number EXTERNAL[facility] (LAB) [facility] [address] [place] [address] documented in this encounter Visit Diagnoses Diagnosis Sebastian's thyroiditis- Primary Chronic lymphocytic thyroiditis Irregular periods Irregular menstrual cycle documented in this encounter Care Teams Electronics Installer Relationship Specialty Start Date End Date Meghan Cagle MD [address] [facility] [address] [place] [address] PCP - General Pediatrics 01/18/18 documented as of this encounter
--- OUTSIDE RECORDS SUMMARY | 2024-11-23 00:07 | XMS_ITS | Encounter Summary ---
Author Organization [facility] Address [address] [place] [address] Care Team Providers Care Software Development Test Engineer Name Role Phone Meghan Cagle MD Primary Care Provider [phone] Reason for Visit * Reason Comments Follow-up * Benefit Info Only (Routine) - Closed Specialty Diagnoses / Procedures Referred By Contasaf uriarte Referred To Contact Pediatric Endocrinology Diagnoses follow up Procedures TELE FOLLOW UP Sherry Bautista MD [address] [place] [phone] Referral ID Status Reason Start Date Expiration Date Visits Re quested Visits Authorized [id number] Closed 07/09/2020 08/08/2020 1 1 Encounter Details Date Type Department Care Team (Latest Contact Info) Description 07/09/2020 11:00 AM EDT Telemedicine [facility] Pediatric Endocrinology at the [facility] [address] [place] [address] Sherry Bautista MD [address] [place] [phone] Sebastian's thyroiditis (Primary Dx); Irregular periods [...] Sign Reading Time Taken Comments Blood Pressure - - Pulse - - Temperature 36.9 ??C (98.4 ??F) 07/09/2020 1 0:46 AM EDT Respiratory Rate - - Oxygen Saturation - - Inhaled Oxygen Concentration - - Weight 54.4 kg (120 lb) 07/09/2020 10:4 6 AM EDT Father will report during visit Height 157.5 cm (5' 2 ) 07/09/2020 10:4 6 AM EDT Father will provide to Provider Body Mass Index 21.95 07/09/2020 10:46 AM EDT Body Mass Index Percentile 56.06% 07/09 10:46 AM EDT Growth Chart: [facility] (Girls, 2- 20 Years) documented in this encounter Progress Notes * Sherry Bautista MD - 07/09/2020 11:00 AM EDT TeleMedicine Visit (online synchronous audio & video) Patient: Neville Voss [id number], :2000 TeleMedicine henry used: Inaika henry Patient location: Home in [place] Provider location: Home Verbal Consent: Not applicable. Patient joined scheduled visit via Friend Trusted [facility] Subjective: HPI: Neville is a 19 y.o. female who presents for telemedicine evaluation of Sebastian's thyroiditis I am seeing Neville Voss today via telehealthas a follow up for Sebastian's thyroiditis. Patient was referred by Meghan Cagle MD. I last saw her 18 months ago. Patient is here with her father Neville had irregular periods and was evaluated by , a product inspection coordinator. She recently had another Etonogestrel implant. As part of an investigation for irregular [...] and the repeat Urine iodine was normal. Her most recent thyroid function tests were obtained in October 2018 and the results were normal. Past Medical History History ??? Length: 17 (43.2 cm) Weight: 9 lb 2 oz (4.139 kg) ??? Delivery Method: , Classical ??? Gestation Age: 38 wks ??? Feeding: Breast and Bottle Fed \No past surgical history on file. Family History Paternal grandmother and great grandfather [...] Cardiovascular: No chest pain. Gastrointestinal: No diarrhea. Endocrine:Periods are still irregular. Genitourinary: Normal voiding. Musculoskeletal: No fractures. Skin: No rash. Allergic/Immunologic: No frequent infections. Neurological: No seizure. Hematological: No bleeding diathesis. Vitals: 07/09/20 1046 Temp: 98.4 ??F (36.9 ??C) TempSrc: Oral Weight: 120 lb (54.4 kg) Height: 5' 2 (1.575 m) Body mass index is 21.95 kg/m??. Body surface area is 1.54 meters squared.\ Wt Readings from Last 3 Encounters: 07/09/20 120 lb (54.4 kg) (39 %, Z= -0.28)* 11/29/18 119 lb 14.9 oz (54.4 kg) (47 %, Z= -0.09)* 06/11/18 123 lb 3.8 oz (55.9 kg) (56 %, Z= 0.14)* * Growth percentiles are based on CDC (Girls, 2-20 Years) data. Ht Readings from Last 3 Encounters: 07/09/20 5' 2 (1.575 m) (19 %, Z= -0.88)* 11/29/18 5' 2.76 (1.594 m) (29 %, Z= -0.54)* 06/11/18 5' 2.44 (1.586 m) (26 %, Z= -0.64)* * Growth percentiles are based on [facility] (Girls, 2-20 Years) data. Body mass index is 21.95 kg/m??. 56 %ile (Z= 0.15) based on CDC (Girls, 2-20 Years) BMI-for-age based on BMI available as of 07/09/2020. 39 %ile (Z= -0.28) based on [facility] (Girls, 2-20 Years) vigusj-ojz-wmr data using vitals from 07/09/2020. 19 %ile (Z= -0.88) based on [facility] (Girls, 2-20 Years) Lvolacf-rkw-iqb data based on Stature recorded on 07/09/2020. Objective: Physical Exam Constitutional: She appears well-developed. No distress. HENT: Head: Normocephalic. Eyes: Right eye exhibits no discharge. Left eye exhibits no discharge. Neck: Normal range of motion. Cardiovascular: No cyanosis Pulmonary/Chest: Effort normal. Abdominal: Soft. She exhibits no mass. There is no tenderness. Musculoskeletal: She exhibits no edema or deformity. Neurological: She is alert and oriented to person Skin: Skin is warm. No rash noted. Lab Results Component Latest Ref Rng & Units 11/22/2018 Iodine, Urine 28.0 - 544.0 ug/L T4, Free 0.93 - 1.60 ng/dL 1.11 Thyroid Stimulating Hormone 0.450 - 4.500 uIU/mL 0.847 Component Latest Ref Rng & Units 06/06/2018 Iodine, Urine 28.0 - 544.0 ug/L 123.9 Component Latest Ref Rng & Units 11/22/2018 T4, Free 0.93 - 1.60 ng/dL 1.11 Thyroid Stimulating Hormone 0.450 - 4.500 uIU/mL 0.847 Assessment: Neville has Sebastian's thyroiditis. However, her most recent thyroid function tests were normal. She also denies any symptoms of hypothyroidism such as low energy level, constipation or dry skin. She has a strong family history of hypothyroidism. I discussed with Neville about the interpretation of test results and the importance of surveillance for hypothyroidism because she is at risk for it. I recommend to repeat FreeT4 and TSH. If the results are normal , she will return in1 year. Plan: 1. FreeT4, TSH 2. No treatment is indicated at this time. 3. I will contact the family with results. 4. If results are normal, she will return in 1 year. Telemedicine using Time. I spent a total of 25 minutes associated with the E/M on the day of the telehealth visit. Component Latest Ref Rng & Units 07/26/2020 T4, Free 0.93 - 1.60 ng/dL 1.20 Thyroid Stimulating Hormone 0.450 - 4.500 uIU/mL 1.410 Test results are normal. documented in this encounter Plan of Treatment Not on file documented as of this encounter Procedures Procedure Name Priority Date/Time Associated Diagnosis Comments TSH Routine 07/26/2020 8:16 AM EDT Sebastian's thyroiditis T4, FREE Routine 07/26/2020 8:16 AM EDT Sebastian's thyroiditis documented in this encounter Results * TSH (07/26/2020 8:16 AM EDT) Thyroid Stimulating Hormone 1.410 0.450 - 4.500 uIU/mL [facility] Comment: Performed At: [address] [facility] [address], [place] ??[id number] Henny Torres MD [id number] Blood specimen (specimen) 07/26/2020 8:16 AM EDT 07/26/2020 Sherry Bautista MD LAB BLOOD ORDERABLE S [facility] ([facility]) [facility] [address] [place] [address] * T4, free (07/26/2020 8:16 AM EDT) T4, Free 1.20 0.93 - 1.60 ng/dL [facility] Blood specimen (specimen) 07/26/2020 8:16 AM EDT 07/26/2020 Sherry Bautista MD LAB BLOOD ORDERABLE S [facility] ([facility]) [facility] [address] [address] documented in this encounter Visit Diagnoses Diagnosis Sebastian's thyroiditis- Primary Chronic lymphocytic thyroiditis Irregular periods Irregular menstrual cycle documented in this encounter Care Teams Software Development Test Engineer Relationship Specialty Start Date End Date Meghan Cagle MD [address] [facility] [address] [place], [place] [id number] PCP - General Pediatrics 01/18/18 documented as of this encounter
--- OUTSIDE RECORDS SUMMARY | 2024-11-23 00:07 | XMS_ITS | Encounter Summary ---
Author Organization [facility] Address [address] [place] [address] Care Team Providers Care Pet Groomer Name Role Phone Meghan Cagle MD Primary Care Provider [phone] Reason for Visit * Reason Onset Date Comments Results 05/30/2023 Encounter Details Date Type Department Care Team (Late st Contact Info) Description 05/30/2023 Telephone [facility] at [address] [address] Amanda Norman DNP [address] [phone] Results Social History Tobacco Use Types Packs/Day Years Used Date Smoking Tobacco: Never Smokeless Tobacco: Never Alcohol Use Standard Drinks/Week Comments Not Currently 0 (1 standard drink = 0.6 oz pur e alcohol) Sex and Gender Information Value Date Recorded Sex Assigned at Not on file Gender Identity Not on file Sexual Orientation Not on file documented as of this encounter Miscellaneous Notes * Telephone Encounter - Amanda Norman DNP - 05/30/2023 8:21 PM EDT Pt was called to follow up. There was no answer. Mailbox was full , unable to leave any messages. documented in this encounter Plan of Treatment Not on file documented as of this encounter Visit Diagnoses Not on filedocumented in this encounter Care Teams Pet Groomer Relationship Specialty Start Date End Date Meghan Cagle MD [address] [facility] [place] [phone] PCP - General Pediatrics 01/18/18 documented as of this encounter
--- OUTSIDE RECORDS SUMMARY | 2024-11-23 00:08 | XMS_ITS ---
Author Organization [facility] Address [address] [facility] [address] [place] [address] Care Team Providers Care Network Intern Name Role Phone JORGE GEORGE MD Primary Care Provider Ambika Vences Unavailable [phone] Viry White Unavailable [phone] ALLERGIES Allergen (clinical drug ingredient) Drug/Non Drug Allergy documented on EMR Reaction Allergy Type Onset Date Status penicillin Unknown Drug Allergy Active RESULTS Component Value Reference Range Notes * Lab order Reviewed date:05/30/2023 10:18:39 AM Interpretation:Negative Performing Lab: Notes/Report: Negative REASON FOR VISIT Nexplanon/Implanon Insertion/Removal MEDICATIONS Medication SIG (Take, Route, Frequency, Duration) Notes Start Date End Date Status Nexplanon Active ZyrTEC PRN Unknown Encounters Encounter Location Date Provider Diagnosis Shantal Marmolejo MD, [facility] [address] [place] [address] [address] [place] [address] 05/24/2023 Viry White Screening for STDs (sexually transmitted diseases) Z11.3 ; Encounter for surveillance of implantable subdermal contraceptive Z30.46 ; Encounter for other general counseling and advice on contraception Z30.09 ; Vaginal irritation N89.8 and Encounter for other contraceptive management Z30.8 ASSESSMENTS Encounter Date Diagnosis Assessment Notes Treatment Notes Treatment Clinical Notes Section Notes 05/24/2023 Screening for STDs (sexually transmitted diseases) (ICD-10 - Z11.3) 05/24/2023 Encounter for surveillance of implantable subdermal contraceptive (ICD-10 - Z30.46) 05/24/2023 Encounter for other general counseling and advice on contraception (ICD-10 - Z30.09) 05/24/2023 Vaginal irritation (ICD-10 - N89.8) not clear so will check both vaginal and vulvar, likely latter MDL sent out 05/24/2023 Encounter for other contraceptive management (ICD-10 - Z30.8) 05/24/2023 Other UPT neg Moderate complexity visit to no of dx and amt of dtata to be reviewed separate from Nexplanon removal/insert ion /Line MORA Haque, reviewed by Dr GOMES PLAN OF TREATMENT Treatment Notes Assessment Notes Vaginal irritation not clear so will ch annalisa both vaginal and vulvar, likely latter Next Appt Details Follow Up: due WW now/alread y scheduled, Reason: Procedure Notes * Category Sub-Category Detail Notes Nexplanon (NUTRITION PARTNER) Lot #: [id number] Expiration Date: Progress Notes * Neville VOSSDOB:[birth year] (22 yo F)Acc No.[id number]:05/24/2023 Procedure Patient:??Olga Voss Provider:??Viry White PA-C :2000?Age:22 Y?Sex:Fe male Date:05/24/2023 Address:[address] [place] [address] Pcp:JORGE GEORGE MD Structured Data:Intergy (1) : 076 Subjective: * Chief Complaints: * ?Nexplanon/Implanon Ins ertion/Removal * HPI: ?History:? 1. Est pt here for Nexplanon removal and reinsertion ?Here for nexplanon insertion. RBAC reviewed including abnormal bleeding profile; consents signed ?2. Vaginal Irritation x1-2 days ?-no burning with urination, no lower back or pelvic pain ?-no increase in frequency of urination ?-no fevers, nausea ?-no new products; no creams, soaps ?-pt states vagina is sore to touch, complains of discomfort ?-pt thinks it could be UTI or yeast infection ?-no odor, no discharge. ?LMP:??05/11/2023.?Last WW exam:??01/2022?.?Last cervical cancer screen:??N/A.?Sexually active:?Sexually active:??yes ?Contraception:??Nexplanon.?Sexual partner:??same partner x 1 yr.?? * Medical History:?? 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 reinserted 05/15 05/18, reinserted 3due removal 04/2026;Denies abnormal cervical cancer screen:;.?? * OB History:?Migrated OB History:??Pregnancies: none;.?? * Surgical History:??denies * Hospitalization/Major Diagno stic Procedure:??abdominal pain, GI ulcer, stress (ER visit) 03/2020 * Family History:??Mother: [place] sierra, alcoholism, no longer involved, lives w father and step mother Cody.??Father: alive 54 yrs.??Siblings: alive, Sister Tawana Voss (17 y/o) papillary thyroid carcinoma 2020, completed RT 09/28/21.??Paternal Grand Mother: breast cancer age 60s.??1 brother(s) , 2 sister(s) . .?? stepmom 1964. , No known FHx: ovarian/Uterine/Colon/Prostate/Pancreatic Cancer or Melanoma. pt not Cristino [employer]. * Social History:?alcohol: no ?tobacco: vaping, marijuana occ ?exercise: yes; 5xweekly ?occupation: [employer]. * Medications:??TakingNexplano n Taking Nexplanon UnknownZyrTEC , Notes: PRNMedication List reviewed and reconciled with the patientUnknown ZyrTEC , Notes: PRNMedication List reviewed and reconciled with the patient * Allergies:??penicillinno[All ergies Verified] Objective: * Examination: ?General Examination: ?ABDOMEN:??soft, non-tender, no mass palpable. no palpable masses. No guarding or rebound.?EXTERNAL GENITALIA:??normal, no lesions.?URETHRA:??normal.?VAGINA:??normal, no lesions,no abnormal discharge.?CERVIX:??normal no lesions, no CMT.?UTERUS:??normal size, nontender.?ADNEXA:??no palpable masses, nontender bilaterally.?ANUS/PERINEUM:??subtle fissure perineum, tender to swab.?RECTAL EXAM:??deferred.?EXTREMITIES:??implant palp LUE.? Assessment: * Assessment: 1.??Encounter for surveillan ce of implantable subdermal contraceptive - Z30.46??2.??Screening for STDs (sexually transmitted diseases) - Z11.3 (Primary)??3.??Encounter for other general counseling and advice on contraception - Z30.09??4.??Vaginal irritation - N89.8??5.??Encounter for other contraceptive management - Z30.8?? Plan: * Treatment: 2.??Vaginal irritation?LAB: * Lab order* Shantal Marmolejo 05/30/2023 10:18:33 AM > _Lab/MDL: all neg, incl gc chlThis lab was reviewed by Shantal Marmolejo on 05/30/2023 at 10:18 AM EDT Notes: not clear so will check both vaginal and vulvar, likely latter.? Clinical Notes: MDL sent out.?3.??Others?? Clinical Notes: UPT neg Moderate complexity visit to no of dx and amt of dtata to be reviewed separate from Nexplanon removal/insertion /Line MORA Haque, reviewed by Dr GOMES.? * Procedures:?Nexplanon (NUTRITION PARTNER):?Lot #:??[id number].?Expiration Date:??.?nex Consents were signed. Arm was placed with elbow at 90 degree angle and inner arm exposed. Implanon kobi was identified under the skin. Previous insertion site was identified and sterily injected with buffered lidocaine, 1%, 3 cc. The area was then cleansed with betadine and a small incision was made over previous insertion site with scalpel. A sterile hemostat was used to tunnel in the subcutaneous fat and lyse fibrous capsule. The implanon was removed with hemostat without difficulty and noted to be intact. The incision was then approximated with a steristrip. Post procedure instructions were discussed, including icing the area and NSAIDS for discomfort Consents signed, all questions answered. ???Procedure: Left upper inner arm prepped with betadine and sterily injected with 3 cc 1% buffered lidocaine. Nexplanon inserted in usual fashion under skin. Kobi confirmed palpable under skin answer. Steristrip placed. ???Post procedure instructions reviewed. ? * Procedure Codes:??96475 INSE RT DRUG IMPLANT [id number] REMOVE DRUG IMPLANT [id number] ETONOGESTREL IMPLANT [id number] URINE TEST * Follow Up:??due WW now/alrea dy scheduled * * Sign off status: Completed true * Provider:??Viry White PA-C Date :??05/24/2023 History and Physical Notes * HPI (History of Present Illness) Category Sub-Category Detail Notes Category Not es History Contraception: Nexplanon LMP: 05/11/2023 Last cervical cancer screen: N/A Sexual partner: same partner x 1 yr Last WW exam: 01/2022 Sexually active: Sexually active:: yes Examination Category Sub-Category Detail Notes Category Not es General Examination CERVIX: normal no lesions, no CMT VAGINA: normal, no lesions, no abnormal discharge EXTERNAL GENITALIA: normal, no lesions UTERUS: normal size, nontend er ADNEXA: no palpable masses, nontender bilaterally URETHRA: normal RECTAL EXAM: deferred ABDOMEN: soft, non-tender, no mass palpable. no palpable masses. No guarding or rebound ANUS/PERINEUM: subtle fissure perin eum, tender to swab EXTREMITIES: implant palp LUE
--- OUTSIDE RECORDS SUMMARY | 2024-11-23 00:08 | XMS_ITS ---
Author Organization [employer] Address [facility] 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 Marine Physics Professor Name Role Phone JORGE GEORGE MD Primary Care Provider Ambkia Vences Unavailable [phone] Viry White Unavailable [phone] ALLERGIES Allergen (clinical drug ingredient) Drug/Non Drug Allergy documented on EMR Reaction Allergy Type Onset Date Status penicillin Unknown Drug Allergy Active RESULTS Component Value Reference Range Notes 207-PAP reflex HPV if Abnorm al, reflex HPV Tatiana Reviewed date:06/27/2023 09:08:07 PM Interpretation:neg pap reflex Performing Lab:[facility] Notes/Report: Grade NILM REASON FOR VISIT Est Patient: Well Woman MEDICATIONS Medication SIG (Take, Route, Frequency, Duration) Notes Start Date End Date Status Nexplanon Active ZyrTEC PRN Active VITAL SIGNS Blood pressure systolic 100 mm Hg 06/26/20 23 Blood pressure diastolic 70 mm Hg 023 Weight 126 lbs 06/26/2023 Weight-kg 57.15 kg 06/26/2023 Height 63 in 06/26/2023 Height-cm 160.02 cm 06/26/2023 BMI 22.32 kg/m2 06/26/2023 Encounters Encounter Location Date Provider Diagnosis [facility] [address] [facility] [address] [place] [address] 06/26/2023 Line Cindy Well woman exam Z01.419 and Encounter for gynecological examination (general) (routine) without abnormal findings Z01.419 ASSESSMENTS Encounter Date Diagnosis Assessment Notes Treatment Notes Treatment Clinical Notes Section Notes 06/26/2023 Well woman exam (ICD-10 - Z01.419) 06/26/2023 Encounter for gynecological examination (general) (routine) without abnormal findings (ICD-10 - Z01.419) Normal Exam 06/26/2023 Other /Viry Haque PA-C, reviewed by Dr GOMES PLAN OF TREATMENT Treatment Notes Assessment Notes Other /Viry Haque PA-C, reviewed by Dr GOMES Next Appt Details Follow Up: one year (annual) ; sooner for any complaints and concerns, including breast masses, abnl bleeding, etc, Reason: Progress Notes * Neville VOSSDOB:[birth year] (22 yo F)Acc No.[id number]:06/26/2023 Est. Patient Well woman Patient:??Olga Voss Provider:??Viry White PA-C :2000?Age:22 Y?Sex:Fe male Date:06/26/2023 Address:[address] [place] [address] Pcp:JORGE GEORGE MD Structured Data:Intergy (1) : 076 Subjective: * Chief Complaints: * ?Est Patient: Well Woma n * HPI: ?History:? 1. Est pt here for ww. ?LMP:??nexplanon 06/25/2023, usually twice a month per pt last a week (varies from normal to heavy bleeding).?Last [facility] exam:??01/2022.?Last cervical cancer screen:??never 04/[address]/ng?.?Contraception:??Nexplanon.?Sexual partner:??yes, same partner x 1.5 yr?.?? * ROS:?Constitutional:?Chills??No.??Fever??No.??Night sweats??No.??Weight gain??No.??Weight loss??No.?Eyes:?Double Vision??No.??Vision loss??No.??Blurred vision??No.?Ears, nose, mouth, throat:?Sore throat/hoarse??No.??Ear pain??No.??Ringing in the ears??No.?Cardiovascular:?Chest pain or tightness??No.??Palpitations??No.?Respiratory:?Frequent Cough??No.??Shortness of breath??No.??Wheezing??No.?Gastrointestinal:?Abdominal pain??No.??Heartburn??No.??Nausea??No.??Vomiting??No.??Bowel habits change??No.??Rectal bleeding??No.?Genitourinary:?Abnormal vaginal bleeding??No.??Irregular menstruation??No.??Heavy bleeding??No.??Vaginal discharge??No.??Vaginal itching/burning??No.??Pelvic pain??No.??Painful periods??No.??Pain during/after sex??No.??Urinary incontinence??No.??Painful/ Frequent urination??No.??Blood in urine??No.?Musculoskeletal:?Joint Pain??No.??Swelling ??No.?Integumentary (skin and/or breast):?Breast mass??No.??Breast pain??No.??Nipple discharge??No.??Persistent Itching??No.??Rash??No.?Neurological:?Weakness??No.??Numbness??No .??Headache??No.?Psychiatric:?Depression??No.??Suicidal thoughts??No.?Endocrine:?Too hot/cold??No .??Fatigue??No.??Excessive thirst??No.?Hematologic/Lymphatic:?Anemia??No.??Swollen glands??No.??Easy bruising??No.? * Medical History:?? 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 reinserted 05/15 05/18, reinserted 3due removal 04/2026.?? * OB History:?Migrated OB History:??Pregnancies: none;.?? * [...] ovarian/Uterine/Colon/Prostate/Pancreatic Cancer or Melanoma. pt not [facility]. * Social History:?alcohol: yres once in a while ?tobacco: vaping, marijuana occassionally ?exercise: yes; 2-3 x weekly running ?occupation: [employer] . * Medications:??TakingNexplano n ZyrTEC , Notes to Pharmacist: PRNTaking Nexplanon Taking ZyrTEC , Notes to Pharmacist: PRN * Allergies:??penicillin Objective: * Vitals:??BP:100/70, Wt:126lb s, Wt-k.15 kg, Ht: 63 in, Ht-cm: 160.02 cm, BMI:22.32Index. * Examination: ?General Examination: ?GENERAL APPEARANCE:??well developed, well nourished, in no acute distress.?PSYCH:??alert, normal affect.?SKIN:??no lesions.?EYES:??no icterus; Conjunctiva pink.?NECK/THYROID:??normal, no thyroid nodules, no cervical lymphadenopathy.?BREASTS:??Normal appearance bilaterally; ?mild fibrocystic changes bilaterally; ?No distinctly palpable masses bilaterally; ?No nipple discharge bilaterally; ?No supraclavicular or axillary adenopathy bilaterally;.?ABDOMEN:??soft, non-tender, ?no mass palpable, ?nondistended, ?no rebound tenderness or guarding, ?no hernias appreciated,.?BACK:??no obvious deformities.?EXTERNAL GENITALIA:??normal, no lesions.?URETHRA:??normal.?VAGINA:??normal, no lesions, no abnormal discharge.?CERVIX:??normal, no lesions, no cmt.?UTERUS:??normal sized, non tender.?ADNEXA:??nontender, no palpable masses.?CUL-DE-SAC:??nontender.?ANUS/PERINEUM:??normal perineum without lesions.?RECTAL EXAM:??deferred.?EXTREMITIES:??implant palp LUE.? Assessment: * Assessment: 1.??Well woman exam - Z01.41 9 (Primary)??2.??Encounter for gynecological examination (general) (routine) without abnormal findings - Z01.419, Normal Exam?? Plan: * Treatment: 2.??Others?? Notes: /Viry Haque PA-C, reviewed by Dr GOMES.? * Procedure Codes:?? * Preventive Medicine:? Pt is aware it is her responsibility to follow up on all testing within 10 days of completion. Should view on portal or contact office for ALL results. ? Keep follow up with PCP ? Pt to return to office yearly for annuals, sooner for any symptoms including breast masses, abnormal bleeding or any concerns. * Follow Up:??one year (annual ); sooner for any complaints and concerns, including breast masses, abnl bleeding, etc * * Sign off status: Completed true * Provider:??Viry White PA-C Date :??06/26/2023 History and Physical Notes * HPI (History of Present Illness) Category Sub-Category Detail Notes Category Not es History Contraception: Nexplanon LMP: nexplanon 06/25/2023 , usually twice a month per pt last a week (varies from normal to heavy bleeding) Last cervical cancer screen: never 05/[address]/ng Sexual partner: yes, same partner x 1.5 yr Last WW exam: 01/2022 Examination Category Sub-Category Detail Notes Category Not es General Examination CERVIX: normal, no lesions, n o cmt VAGINA: normal, no lesions, no abnormal discharge EXTERNAL GENITALIA: normal, no lesions UTERUS: normal sized, non te nder ADNEXA: nontender, no palpab le masses CUL-DE-SAC: nontender URETHRA: normal RECTAL EXAM: deferred BREASTS: Normal appearance bi laterally; mild fibrocystic changes bilaterally; No distinctly palpable masses bilaterally; No nipple discharge bilaterally; No supraclavicular or axillary adenopathy bilaterally; ABDOMEN: soft, non-tender, no mass palpable, nondistended, no rebound tenderness or guarding, no hernias appreciated, ANUS/PERINEUM: normal perineum with out lesions EXTREMITIES: implant palp LUE GENERAL APPEARANCE: well developed, well nourished, in no acute distress EYES: no icterus; Conjunct flaquita pink NECK/THYROID: normal, no thyroid n odules, no cervical lymphadenopathy BACK: no obvious deformiti es PSYCH: alert, normal affect SKIN: no lesions
--- OUTSIDE RECORDS SUMMARY | 2024-11-23 00:08 | XMS_ITS ---
Author Organization [employer] Address [facility] [facility] [address] [place] [address] Care Team Providers Care Telephone Supervisor Name Role Phone DORIS BARR, JORGE Primary Care Provider Ambika Vences [facility] [phone] REASON FOR VISIT neg vaginitis Encounters Encounter Location Date Provider Diagnosis Shantal Marmolejo MD, [facility] [address] [place] [address] [address] [place] [address] 05/30/2023 Ambika Gunter PLAN OF TREATMENT No Information Progress Notes * NICK, GenesisDOB:[birth year] (22 yo F)Acc No.[id number]:05/30/2023 Patient:??Olga Voss :2000?Age:22 Y?Sex:Fe male Address:[address] [place] [address] * true * Date:??
== END 2024-11-15 20:19 | disposition home or self-care (01) ==
PROVIDERS: Emergency Provider Student in an Organized Health Care Education/Training Program
DX: K52.9 Noninfective gastroenteritis and colitis, unspecified (principal); A05.9 Bacterial foodborne intoxication, unspecified
CPT/HCPCS: 36415; 80053; 81001; 81025; 82948; 83690; 85025; 93005; 96374; 96375; 99285; J1885; J2405; J7120